=== PATIENT | female | born 1990 | race Caucasian/White ===

== ENCOUNTER → 2017-01-11 | Outpatient (CLI) | payer SELFPAY ==
[2017-01-11 14:57] LABS: BASOPHILS # (AUTO) 0.02 10*3/UL; BASOPHILS % (AUTO) 0.2 % (0-1); EOSINOPHILS # (AUTO) 0.05 10*3/UL; EOSINOPHILS % (AUTO) 0.5 % (0-8); HEMOGLOBIN 13.2 g/dL (12.0-16.0); LYMPHOCYTES # (AUTO) 2.45 10*3/uL; MEAN CORPUSCULAR HEMOGLOBIN 29.3 PG (27-31); MEAN CORPUSCULAR HGB CONC 34.7 g/dL (33-37); MEAN CORPUSCULAR VOLUME 84.4 FL (81-99); MEAN PLATELET VOLUME 10.3 FL (7.4-12.2); MONOCYTES # (AUTO) 0.48 10*3/UL (0.3-0.8); MONOCYTES % (AUTO) 5.2 % (5-15); NEUTROPHILS # (AUTO) 6.24 10*3/UL; NEUTROPHILS % (AUTO) 67.5 % (50-80)
[2017-01-11 15:01] LABS: PLATELET MORPHOLOGY COMMENT NORMAL MORPHOLOGY (NORM); RBC MORPHOLOGY COMMENT NORMAL MORPHOLOGY (NORM); WBC MORPHOLOGY COMMENT NORMAL MORPHOLOGY (NORM)
[2017-01-11 15:18] LABS: HIV ANTIBODY NEGATIVE (N); HIV-1 P24 ANTIGEN NEGATIVE (N)
--- NOTE | 2017-01-12 11:49 | DI ---
US OB LESS THAN 14 WEEKS,01/11/2017 2:24 PM: Clinical History: Is Ad gestational age. Previous Exam: None at this facility. Findings: Multiple grayscale and color Doppler sonographic images are obtained through the pelvis demonstrating a single gestational sac containing a single pole measuring 2.3 cm from crown to rump correspo nding with an estimated gestational age of 9 weeks one day. Detected Doppler heart tones measure 172 beats per minute. There is what appears to be a small subchorionic hemorrhage. The cervix is long and closed measuring 4.2 cm in length. The left ovary is normal as is the left ovary although these are not well evaluated. Impression: Single live intrauterine gestation with size equal to dates.
[2017-01-13 11:43] LABS: HEP B SURFACE AG Negative (Negative)
== END ==
LOC: MOB LAB 13:12
PROVIDERS: ATTEND Family Medicine
DX: Z36 Encounter for antenatal screening of mother (principal); Z3A.09 9 weeks gestation of pregnancy
CPT/HCPCS: 36415; 76801; 80081; 86900; 86901; 87088; 87491; 87591

== ENCOUNTER → 2017-03-29 | Outpatient (CLI) | payer SELFPAY ==
--- NOTE | 2017-03-29 23:10 | DI ---
US OB GTE 14 WEEKS,03/29/2017 12:35 PM: Clinical History: screening for malformations. Previous Exam: January 11, 2017 Findings: Multiple grayscale and color Doppler sonographic images are obtained through the pelvis demonstrating a single live intrauterine gestation in breech presentation. Amniotic fluid levels within normal limits. There is normal motion within the limbs and diaphragms with detected Doppler heart tones measur ing 149 beats per minute. The cervix is long and closed measuring 4.2 cm in length. Estimated gestational age is determined by a composite of biparietal diameter, head circumference, ab dominal circumference and femur length yielding an estimated gestational age by ultrasound of 20 week s 4 days. The placenta is anterior and grade 0 without visible defects. There is no anatomy identified. Estimated weight is 349 g (74th percentile). Impression: Single live intrauterine gestation with size equal to dates.
== END ==
LOC: US 12:30
PROVIDERS: ATTEND Family Medicine
DX: Z36 Encounter for antenatal screening of mother (principal); Z3A.20 20 weeks gestation of pregnancy
CPT/HCPCS: 76805